=== PATIENT | female | born 1940 | race Caucasian/White ===

== ENCOUNTER 2021-11-18 10:30 | Emergency (ER) | payer OTHER, MEDICARE ==
[2021-11-18] MEDS ORDERED: ACETAMINOPHEN 500 MG TABLET (FP) PO ONE (11:37)
[2021-11-18 11:51] VITALS: TEMP 98.4; BMI 29.7
[2021-11-18 15:08] VITALS: BP 147/88; PULSE 48
== END 2021-11-18 15:11 | disposition home or self-care (01) ==
LOC: JER 10:30
DX: R22.42 Localized swelling, mass and lump, left lower limb (principal); M25.562 Pain in left knee
CPT/HCPCS: 73562-TC-LT-FY; 73610-TC-LT-FY; 93970-TC; 99285-25